=== PATIENT | female | born 1970 | race Caucasian/White ===

== ENCOUNTER 2020-08-04 09:54 | Emergency (ER) | payer OTHER ==
[2020-08-04 10:36] LABS: HEMOGLOBIN 13.5 gm/dl (12.3-15.3); RED BLOOD COUNT 4.32 M/UL (4.00-5.10); WHITE BLOOD COUNT 10.2 K/UL (4.5-11.0)
[2020-08-04 11:08] LABS: BUN/CREATININE RATIO 22 (0-10)
[2020-08-04] MEDS ORDERED: ZOFRAN4 MG PO (11:57)
[2020-08-04] MEDS ORDERED: BENTYL 20MG TAB20 MG PO (11:57)
== END 2020-08-04 12:09 | disposition home or self-care (01) ==
LOC: ER1 09:54
PROVIDERS: Family Medicine
DX: R19.7 Diarrhea, unspecified (principal); R11.2 Nausea with vomiting, unspecified; R68.84 Jaw pain; R00.2 Palpitations; Z90.49 Acquired absence of other specified parts of digestive tract; Z90.710 Acquired absence of both cervix and uterus; Z20.828 Contact with and (suspected) exposure to other viral communicable diseases
CPT/HCPCS: 71045; 80053; 81001; 82550; 82553; 83874; 84439; 84443; 84484; 85025; 93005; 96374; 99284; J2405; J7030; U0002

== ENCOUNTER → 2020-08-20 | Outpatient (CLI) | payer OTHER ==
[~2020-08-20] MED LIST: BENTYL 20MG TAB20 MG PO; ZOFRAN4 MG PO
== END ==
LOC: NM 08:00 → ECHO 11:04 → NM 13:00
DX: R07.89 Other chest pain (principal)
CPT/HCPCS: ECHO; 78452; 93017; 93306; A9502

== ENCOUNTER → 2021-05-23 | Outpatient (CLI) | payer OTHER | LOC: US 14:00 | DX: N63.20 Unspecified lump in the left breast, unspecified quadrant (principal) | CPT/HCPCS: 76642-LT ==

== ENCOUNTER 2021-07-10 11:15 | Emergency (ER) | payer OTHER | END 2021-07-10 14:50 | disposition home or self-care (01) | LOC: ER1 11:15 | DX: U07.1 COVID-19 (principal); Z23 Encounter for immunization; Z90.710 Acquired absence of both cervix and uterus | CPT/HCPCS: 99283; M0245 ==